=== PATIENT | female | born 1955 | race Caucasian/White ===

== ENCOUNTER 2017-09-17 00:44 | Inpatient (IN) | payer BC, OTHER ==
[~2017-09-17] VITALS: Ht 162.6 cm; Wt 89.1 kg
[2017-09-17] VITALS (13 sets, daily range): BP systolic 135–171; BP diastolic 74–96; PULSE 57–70; TEMP 36.3–37.1; O2SAT 94–99; Ht 162.6 cm; Wt 89.1 kg
[~2017-09-17 00:44] MED LIST: AMLO-110 PO; ASPI81TA28 PO; CALC600T9 PO; HYDR25TA4 PO; LOSA1TAB38 PO; MULT-506 PO; OMEG10002 PO
--- NOTE | 2017-09-17 01:18 | EMERGENCY ROOM VISIT NOTE ---
History Report prepared by Jean-Claude: Babita Moore Under the Supervision of: Dr. Silvia Lugo D.O. First contact with patient: 00:59 Chief Complaint: CHEST PAIN Stated Complaint: CHEST PAIN History of Present Illness The patient is a 62 year old female who presents to the Emergency Room with complaints of persistent chest pain that began about 2 hours ago. The patient states that she felt a centralized chest pressure with some tingling, that lasted about 45 minutes. She notes that she was preparing for bed when her episode started, noting she has never symptoms like these before. She denies any abdominal pain. The patient states that she was cardioverted one week ago in [facility]. She notes she is normally in atrial fibrillation. The patient states that she is a [place] resident. Source of History: patient Onset: about 2 hours ago Position: chest (centralized ) Quality: other (chest pain) Timing: other (persistent) Associated Symptoms: No abdominal pain Note: Associated symptoms include: centralized chest pressure with some tingling Review of Systems See HPI for pertinent positives & negatives. A total of 10 systems reviewed and were otherwise negative. Past Medical & Surgical Medical Problems: (1) Acute coronary syndrome (2) Atrial fibrillation Family History FH: CHF (congestive heart failure) FH: atrial fibrillation FH: heart attack Heart disease Social History Smoking Status: Former Smoker Smokeless Tobacco Use: No Alcohol Use: none Drug Use: none Marital Status: Housing Status: lives with family Current/Historical Medications Scheduled Apixaban (Eliquis), 5 MG PO BID Flecainide Acetate (Flecainide Acetate), 75 MG PO BID Metoprolol Tartrate (Lopressor) (Lopressor), 100 MG PO BID Multivitamin (Multivitamin), 1 TAB PO DAILY [place]-3 Fatty Acids (Fish Oil), 2,000 MG PO DAILY Scheduled PRN Diltiazem Hcl Coated Beads (Diltiazem Cd), 180 MG PO DAILY PRN for AFIB Allergies Coded Allergies: Penicillins (Verified Allergy, Severe, HIVES, 03/11/16) Sulfa Antibiotics (Verified Allergy, Severe, HIVES & "CRAWLING" FEELING ALL OVER, 03/11/16) DOROTHY Inhibitors (Verified Allergy, Intermediate, COUGH, 03/11/16) Physical Exam Vital Signs Date Time Temp Pulse Resp B/P (MAP) Pulse Ox O2 Delivery O2 Flow Rate FiO2 09/17/17 04:40 73 14 97 09/17/17 04:30 169/101 09/17/17 04:25 67 14 98 09/17/17 04:10 71 14 98 09/17/17 04:00 156/94 09/17/17 03:55 64 16 95 09/17/17 03:40 67 17 97 09/17/17 03:30 150/88 09/17/17 03:25 71 13 96 09/17/17 03:20 66 22 97 09/17/17 03:05 63 16 94 09/17/17 03:00 144/82 09/17/17 02:50 64 16 94 09/17/17 02:35 65 17 94 09/17/17 02:30 147/89 09/17/17 02:20 65 17 93 09/17/17 02:05 64 13 95 09/17/17 02:00 151/85 09/17/17 01:59 66 17 93 09/17/17 01:44 68 16 95 09/17/17 01:30 143/86 09/17/17 01:29 71 22 96 09/17/17 01:14 71 24 95 09/17/17 01:00 150/90 09/17/17 01:00 70 09/17/17 00:59 36.7 72 20 150/86 95 Room Air 09/17/17 00:59 71 16 96 Room Air 09/17/17 00:58 150/86 Physical Exam HEENT: Head - normocephalic and atraumatic Pupils are equal, round, and reactive to light. Extraocular eye muscles are intact, and sclera are anicteric. Nose - moist nasal mucosa without discharge. Mouth - moist buccal mucosa. Oropharynx is nonerythematous and there is no tonsillar exudate or edema noted. Neck: Supple; no JVD, nuchal rigidity, cervical lymphadenopathy, or auscultated bruits. Heart: Regular rate and rhythm. There is a normal S1 and S2 with no murmurs, clicks, or gallops appreciated. Lungs: Clear to auscultation bilaterally with no wheezes, rales, or rhonchi. Abdomen: Soft, completely nontender, nondistended, with good bowel sounds. There are no palpable pulsatile masses or hepatosplenomegaly. There is no guarding, rigidity, or rebound noted. Extremities: No evidence of cyanosis, clubbing, or edema. There are easily palpable peripheral pulses. Skin: warm and dry with good turgor and no rashes. Medical Decision & Procedures Laboratory Results 09/17/17 00:45 Red Blood Count 5.04, Mean Corpuscular Volume 88.7, Mean Corpuscular Hemoglobin 30.2, Mean Corpuscular Hemoglobin Concent 34.0, Mean Platelet Volume 10.4, Neutrophils (%) (Auto) 71.9, Lymphocytes (%) (Auto) 18.8, Monocytes (%) (Auto) 8.0, Eosinophils (%) (Auto) 0.8, Basophils (%) (Auto) 0.3, Neutrophils # (Auto) 7.25, Lymphocytes # (Auto) 1.90, Monocytes # (Auto) 0.81, Eosinophils # (Auto) 0.08, Basophils # (Auto) 0.03 09/17/17 00:45 Test 09/17/17 00:45 White Blood Count 10.09 K/uL (4.8-10.8) Red Blood Count 5.04 M/uL (4.2-5.4) Hemoglobin 15.2 g/dL (12.0-16.0) Hematocrit 44.7 % (37-47) Mean Corpuscular Volume 88.7 fL (80-100) Mean Corpuscular Hemoglobin 30.2 pg (25-34) Mean Corpuscular Hemoglobin Concent 34.0 g/dl (32-36) Platelet Count 281 K/uL (130-400) Mean Platelet Volume 10.4 fL (7.4-10.4) Neutrophils (%) (Auto) 71.9 % Lymphocytes (%) (Auto) 18.8 % Monocytes (%) (Auto) 8.0 % Eosinophils (%) (Auto) 0.8 % Basophils (%) (Auto) 0.3 % Neutrophils # (Auto) 7.25 K/uL (1.4-6.5) Lymphocytes # (Auto) 1.90 K/uL (1.2-3.4) Monocytes # (Auto) 0.81 K/uL (0.11-0.59) Eosinophils # (Auto) 0.08 K/uL (0-0.5) Basophils # (Auto) 0.03 K/uL (0-0.2) RDW Standard Deviation 43.4 fL (36.4-46.3) RDW Coefficient of Variation 13.4 % (11.5-14.5) Immature Granulocyte % (Auto) 0.2 % Immature Granulocyte # (Auto) 0.02 K/uL (0.00-0.02) Prothrombin Time 10.6 SECONDS (9.0-12.0) Prothromb Time International Ratio 1.0 (0.9-1.1) Activated Partial Thromboplast Time 27.5 SECONDS (21.0-31.0) Partial Thromboplastin Ratio 1.1 Anion Gap 7.0 mmol/L (3-11) Est Creatinine Clear Calc Drug Dose 59.0 ml/min Estimated GFR () 63.3 Estimated GFR (Non- 54.6 BUN/Creatinine Ratio 29.5 (10-20) Calcium Level 8.9 mg/dl (8.5-10.1) Magnesium Level 2.5 mg/dl (1.8-2.4) Total Bilirubin 0.3 mg/dl (0.2-1) Direct Bilirubin < 0.1 mg/dl (0-0.2) Aspartate Amino Transf (AST/SGOT) 13 U/L (15-37) Alanine Aminotransferase (ALT/SGPT) 27 U/L (12-78) Alkaline Phosphatase 71 U/L (45-117) Total Protein 7.1 gm/dl (6.4-8.2) Albumin 3.4 gm/dl (3.4-5.0) Laboratory results per my review. Medications Administered Medications (Trade) Dose Ordered Sig/Henok Route Start Time Stop Time Status Last Admin Dose Admin Aspirin (Aspirin Chew) 81 mg NOW STAT PO 09/17/17 04:02 09/17/17 04:03 DC 09/17/17 04:08 81 MG Nitroglycerin (Nitroglycerin 2% Oint) 18 inch STK-MED ONCE EXT 09/17/17 04:18 09/17/17 04:19 DC 09/17/17 04:23 1 INCH Potassium Chloride (Klor-Con M10) 40 meq NOW STAT PO 09/17/17 04:24 09/17/17 04:26 DC 09/17/17 04:31 40 MEQ Nitroglycerin (Nitrostat Tab) 0.4 mg UD PRN SL 09/17/17 04:30 10/17/17 04:29 09/17/17 05:11 0.4 MG Morphine Sulfate (MoRPHine SULFATE INJ) 2 mg Q30M PRN IV 09/17/17 04:30 10/01/17 04:29 09/17/17 05:29 2 MG Procedure 0402: Ordered Aspirin 81mg PO. ECG Indication: chest pain Rate (beats per minute): 73 Rhythm: normal sinus Findings: T-wave inversion (Inferior leads in V5 and V6), no ectopy Comparison ECG Date: New compared to 09/09/17 ED Course 0100: Past medical records reviewed. The patient was evaluated in room B2. A complete history and physical exam was performed. A twelve-lead EKG was obtained. An IV lock was initiated and labs were drawn as above. Patient's electrocardiogram was interpreted by me. Patient had a chest x-ray as described above. 0210: The patient remains hemodynamically stable. We were able to obtain an old EKG from [facility]. 0402: I reevaluated the patient and she was resting comfortably symptom free. Ordered Aspirin 81mg PO. 0450: Discussed the patient's case with Dr. Rome Lubin [facility]. The patient will be evaluated for further management. 0452: I reevaluated the patient, she is having worsening chest discomfort and worsening EKG changes. Medical Decision The patient is a 62 year old female who presents to the ED with persistent chest pain. Differential diagnosis includes GERD, acute coronary syndrome, angina, and anxiety. The patient's laboratory results showed: normal coags, BUN of 32, creatinine of 1, glucose of 172, LFT's are normal, troponin 0.040, normal white blood cell count, and stable H&H. This is a 62-year-old female patient with a history of A. fib and recent cardioversion who presents to the emergency department with an episode of chest discomfort. The patient is visiting the area as she is caring for her grandson while the parents are away. She had a sudden onset of chest discomfort associated nausea and diaphoresis with some left arm symptoms for which she called EMS. The patient has evidence of EKG changes in comparison to an EKG from earlier this month. She was symptom-free upon arrival here in the emergency department. Her first troponin was negative. However, the patient's chest discomfort recurred and EKG changes were more exaggerated according to the admitting hospitalist. Medication Reconcilliation Current Medication List: was personally reviewed by me Blood Pressure Screening Patient's blood pressure: Normal blood pressure Consults Time Called: [phone] Consulting Physician: RAZ Berman Returned Call: [phone] Discussed the patient's case with RAZ Berman. The patient will be evaluated for further management. Impression Primary Impression: Left sided chest pain Additional Impression: Acute electrocardiogram changes Scribe Attestation The scribe's documentation has been prepared under my direction and personally reviewed by me in its entirety. I confirm that the note above accurately reflects all work, treatment, procedures, and medical decision making performed by me. Departure Information Dispostion Being Evaluated By Hospitalist Referrals Brigido Gamble M.D. (PCP) Forms Call Back Authorization, HOME CARE DOCUMENTATION FORM, IMPORTANT VISIT INFORMATION Patient Instructions My [facility] Problem Qualifiers
[2017-09-17 01:32] LABS: BASO % 0.3 %; BASO ABS # 0.03 K/uL (0-0.2); EOS % 0.8 %; EOS ABS # 0.08 K/uL (0-0.5); HEMATOCRIT 44.7 % (37-47); HEMOGLOBIN 15.2 g/dL (12.0-16.0); IG# 0.02 K/uL (0.00-0.02); LYMPH % 18.8 %; MEAN CELL VOLUME 88.7 fL (80-100); MEAN CORPUSCULAR HEMOGLOBIN 30.2 pg (25-34); MEAN PLATELET VOLUME 10.4 fL (7.4-10.4); MONO ABS # 0.81 K/uL (0.11-0.59); NEUT % 71.9 %; NEUT ABS # 7.25 K/uL (1.4-6.5); PLATELET COUNT 281 K/uL (130-400); RED CELL DISTRIBUTION WIDTH CV 13.4 % (11.5-14.5); RED CELL DISTRIBUTION WIDTH SD 43.4 fL (36.4-46.3); WHITE BLOOD COUNT 10.09 K/uL (4.8-10.8)
[2017-09-17 01:48] LABS: PTT PATIENT 27.5 SECONDS (21.0-31.0)
[2017-09-17] MEDS ORDERED: APIX1TAB3 PO (01:49)
[2017-09-17] MEDS ORDERED: METO100T14 PO (01:50)
[2017-09-17] MEDS ORDERED: FLEC150T PO (01:51)
[2017-09-17] MEDS ORDERED: DILT180C96 PO (01:53)
[2017-09-17 01:59] LABS: ALBUMIN 3.4 gm/dl (3.4-5.0); ALT/SGPT 27 U/L (12-78); AST/SGOT 13 U/L (15-37); BLOOD UREA NITROGEN 32 mg/dl (7-18); CALCIUM 8.9 mg/dl (8.5-10.1); CARBON DIOXIDE 26 mmol/L (21-32); CREATININE 1.08 mg/dl (0.60-1.20); GLUCOSE 172 mg/dl (70-99); POTASSIUM 3.6 mmol/L (3.5-5.1); SODIUM 139 mmol/L (136-145)
[2017-09-17 02:04] LABS: ALKALINE PHOSPHATASE 71 U/L (45-117); CKMB 1.1 ng/ml (0.5-3.6); TOTAL PROTEIN 7.1 gm/dl (6.4-8.2)
[2017-09-17] MEDS ORDERED: ASPIRIN 81 MG CHEW PO STA ×2 (04:02→05:11)
[2017-09-17] MEDS ORDERED: NITROGLYCERIN 2% OINTMENT 30GM TUBE EXT ONE (04:18)
[2017-09-17] MEDS ORDERED: POTASSIUM CHLORIDE 10 MEQ TABCR PO STA (04:24)
[2017-09-17] MEDS ORDERED: ACETAMINOPHEN 325 MG TAB PO PRN (04:30)
[2017-09-17] MEDS ORDERED: MoRPHine SULFATE 2 MG/ML CARP IV PRN (04:30)
[2017-09-17] MEDS ORDERED: GLUCAGON FOR INJ 1 MG VIAL SQ PRN (04:45)
[2017-09-17] MEDS ORDERED: DEXTROSE 50% 50 ML SYR IV PRN (04:45)
[2017-09-17] MEDS ORDERED: ONDANSETRON 8MG OD TAB PO PRN (04:45)
[2017-09-17] MEDS ORDERED: GLUCOSE 10 TABS/TUBE PO PRN (04:45)
[2017-09-17] MEDS ORDERED: GLUCOSE 40% GEL 15 GM TUBE PO PRN (04:45)
[2017-09-17] MEDS: NITROGLYCERIN 0.4 MG SL PER TAB CHARGE SL PRN ×3 (04:48→05:11)
[2017-09-17] MEDS ORDERED: ATORVASTATIN 40 MG TAB PO STA (04:56)
[2017-09-17] MEDS: NSS + 20MEQ KCL 1000ML 1,000 ML IV SCH ×2 (05:09→20:28)
[2017-09-17 05:33] LABS: CKMB 2.1 ng/ml (0.5-3.6)
--- NOTE | 2017-09-17 05:51 | History and Physical ---
History & Physical Date & Time of Service: Sep 17, 2017 at 05:29 Chief Complaint: Chest Pain Primary Care Physician: No Doctor, Assigned History of Present Illness Source: patient, hospital records The patient is a 62-year-old female who presents to the emergency department with a centralized chest pressure that began about 2 hours prior to arrival. The initial set of symptoms lasted about 45 minutes, and at the time of my evaluation of her in the ED, she rated her pressure as a 2/10. She has not had this type of pain in the past, and reports that this began when she was getting ready for bed. She does report an occasional cough, that is residual of a URI that she had recently. Family History FH: CHF (congestive heart failure) FH: atrial fibrillation FH: heart attack Heart disease Social History Smoking Status: Former Smoker Smokeless Tobacco Use: No Drug Use: none Marital Status: Housing status: lives with family Immunizations History of Influenza Vaccine: Unknown History of Tetanus Vaccine?: Unknown History of Pneumococcal: Unknown History of Hepatitis B Vaccine: Unknown Multi-Drug Resistant Organisms History of MDRO: No Allergies Coded Allergies: Penicillins (Verified Allergy, Severe, HIVES, 03/11/16) Sulfa Antibiotics (Verified Allergy, Severe, HIVES & "CRAWLING" FEELING ALL OVER, 03/11/16) DOROTHY Inhibitors (Verified Allergy, Intermediate, COUGH, 03/11/16) Home Medications Scheduled Apixaban (Eliquis), 5 MG PO BID Flecainide Acetate (Flecainide Acetate), 75 MG PO BID Metoprolol Tartrate (Lopressor) (Lopressor), 100 MG PO BID Multivitamin (Multivitamin), 1 TAB PO DAILY [place]-3 Fatty Acids (Fish Oil), 2,000 MG PO DAILY Scheduled PRN Diltiazem Hcl Coated Beads (Diltiazem Cd), 180 MG PO DAILY PRN for AFIB Review of Systems The patient denies palpitations, shortness of breath, dyspnea on exertion, lower extremity swelling, sore throat, fevers, chills, sweats, weight change, fatigue, nausea, vomiting, diarrhea , constipation, abdominal pain, pelvic pain, blood in urine or stool, dysuria, urinary frequency or urgency, lightheadedness , dizziness, headache, memory loss, loss of consciousness, rash, abnormal bruising or bleeding, imbalance, focal or generalized weakness, numbness or tingling in arms or legs, generalized arthralgias or myalgias, back or neck pain, or night sweats. The review of systems is otherwise negative other than for that already noted above, and at least 10 systems have been reviewed. Physical Exam Vital Signs Date Time Temp Pulse Resp B/P (MAP) Pulse Ox O2 Delivery O2 Flow Rate FiO2 09/17/17 03:20 66 22 97 09/17/17 03:05 63 16 94 09/17/17 03:00 144/82 09/17/17 02:50 64 16 94 09/17/17 02:35 65 17 94 09/17/17 02:30 147/89 09/17/17 02:20 65 17 93 09/17/17 02:05 64 13 95 09/17/17 02:00 151/85 09/17/17 01:59 66 17 93 09/17/17 01:44 68 16 95 09/17/17 01:30 143/86 09/17/17 01:29 71 22 96 09/17/17 01:14 71 24 95 09/17/17 01:00 150/90 09/17/17 01:00 70 09/17/17 00:59 36.7 72 20 150/86 95 Room Air 09/17/17 00:59 71 16 96 Room Air 09/17/17 00:58 150/86 The patient is awake, alert and oriented 3, well developed and well nourished, normocephalic and atraumatic, lying in bed and in no acute distress. HEENT--PERRL, EOMI, mucous membranes and oropharynx dry. Neck--supple. No JVD. No bruits. Thyroid normal, trachea midline, no adenopathy. Heart--normal S1 and S2. No murmurs, rubs or gallops. Lungs--clear bilaterally, no respiratory distress, no accessory muscle use. Abdomen--normal bowel sounds and soft. Nontender. Nondistended, no hernias or masses, no organomegaly. Extremities--no cyanosis or clubbing. No edema. There are good distal pulses b/ l. Dermatologic--normal skin turgor, normal color, no abnormal lymph nodes, no rash. Neurologic--cranial nerves II through XII grossly intact. Rheumatologic--normal range of motion. Psychiatric--normal affect. Diagnostics Laboratory Results Results Past 24 Hours Test 09/17/17 00:45 09/17/17 04:34 09/17/17 04:54 Range/Units White Blood Count 10.09 4.8-10.8 K/uL Red Blood Count 5.04 4.2-5.4 M/uL Hemoglobin 15.2 12.0-16.0 g/dL Hematocrit 44.7 37-47 % Mean Corpuscular Volume 88.7 80-100 fL Mean Corpuscular Hemoglobin 30.2 25-34 pg Mean Corpuscular Hemoglobin Concent 34.0 32-36 g/dl Platelet Count 281 130-400 K/uL Mean Platelet Volume 10.4 7.4-10.4 fL Neutrophils (%) (Auto) 71.9 % Lymphocytes (%) (Auto) 18.8 % Monocytes (%) (Auto) 8.0 % Eosinophils (%) (Auto) 0.8 % Basophils (%) (Auto) 0.3 % Neutrophils # (Auto) 7.25 1.4-6.5 K/uL Lymphocytes # (Auto) 1.90 1.2-3.4 K/uL Monocytes # (Auto) 0.81 0.11-0.59 K/uL Eosinophils # (Auto) 0.08 0-0.5 K/uL Basophils # (Auto) 0.03 0-0.2 K/uL RDW Standard Deviation 43.4 36.4-46.3 fL RDW Coefficient of Variation 13.4 11.5-14.5 % Immature Granulocyte % (Auto) 0.2 % Immature Granulocyte # (Auto) 0.02 0.00-0.02 K/uL Prothrombin Time 10.6 9.0-12.0 SECONDS Prothromb Time International Ratio 1.0 0.9-1.1 Activated Partial Thromboplast Time 27.5 21.0-31.0 SECONDS Partial Thromboplastin Ratio 1.1 Sodium Level 139 136-145 mmol/L Potassium Level 3.6 3.5-5.1 mmol/L Chloride Level 106 98-107 mmol/L Carbon Dioxide Level 26 21-32 mmol/L Anion Gap 7.0 3-11 mmol/L Blood Urea Nitrogen 32 7-18 mg/dl Creatinine 1.08 0.60-1.20 mg/dl Est Creatinine Clear Calc Drug Dose 59.0 ml/min Estimated GFR () 63.3 Estimated GFR (Non- 54.6 BUN/Creatinine Ratio 29.5 10-20 Random Glucose 172 70-99 mg/dl Calcium Level 8.9 8.5-10.1 mg/dl Total Bilirubin 0.3 0.2-1 mg/dl Direct Bilirubin < 0.1 0-0.2 mg/dl Aspartate Amino Transf (AST/SGOT) 13 15-37 U/L Alanine Aminotransferase (ALT/SGPT) 27 12-78 U/L Alkaline Phosphatase 71 45-117 U/L Total Creatine Kinase 55 26-192 U/L Creatine Kinase MB 1.1 0.5-3.6 ng/ml Creatine Kinase MB Ratio 2.0 0-3.0 Troponin I 0.040 0-0.045 ng/ml Total Protein 7.1 6.4-8.2 gm/dl Albumin 3.4 3.4-5.0 gm/dl Impression Assessment and Plan Acute coronary syndrome/dynamic EKG changes inferior laterally/hypertension/ paroxysmal atrial fibrillation-- The patient will be admitted to telemetry for serial cardiac enzymes, serial EKG's, cardiac rhythm monitoring and a 2-D echocardiogram with Dopplers. Initial EKG showed normal sinus rhythm at 69 bpm with T-wave inversions in leads III, aVF, V5 and V6 with mild ST depressions. Follow-up EKG with return of chest pressure symptoms showed normal sinus rhythm at 67 bpm with T-wave inversions in leads II, III, aVF, V5 and V6 with mild ST depressions Continue metoprolol tartrate 100 mg p.o. twice daily, and flecainide 75 mg p.o. twice daily. Give aspirin chewable 324mg total and continue 81 mg every morning Give Klor-Con 40 mEq p.o. now for potassium 3.6. Hold apixaban 5 mg p.o. twice daily. We will start heparin standard concentration per protocol with bolus at 9:30 AM this morning, 12 hours from her last dose of apixaban. Place on Nitropaste 1 inch to the anterior chest wall every 6 hours Nitroglycerin sublingual 3 every 5 minutes given in the ED for pain relief Morphine sulfate 2 mg IV every 30 minutes as needed Check a fasting lipid panel and hemoglobin A1c Start Lipitor 80 mg daily with first dose now Normal saline plus KCl 20 mEq at 75 ML's per hour. Consult cardiology. Level of Care Telemetry Advanced Directives Existing Advance Directive: No Existing Living Will: No Existing Power of Payable Representative: No Resuscitation Status FULL RESUSCITATION VTE Prophylaxis VTE Risk Assessment Done? Y/N: Yes Risk Level: Moderate Given or contraindicated: Other Anticoagulation Social Service Consult None Apply
--- NOTE | 2017-09-17 06:49 | DIAGNOSTIC IMAGING REPORT ---
CHEST ONE VIEW PORTABLE HISTORY: 62 years-old Female eval for CP acute atypical chest pain COMPARISON: None available TECHNIQUE: Portable AP view of the chest FINDINGS: Cardiac silhouette is mildly enlarged. Atherosclerosis of the aorta. There is no pneumothorax or pleural effusion. Diffuse reticular interstitial opacities are noted in a multilobar distribution bilaterally. There is no pneumothorax, pleural effusion or focal alveolar opacity identified. Bones of the chest appear grossly intact. IMPRESSION: Diffuse reticular interstitial opacities in a multilobar distribution bilaterally is indeterminate without comparison. Differential considerations would include chronic scarring, pulmonary edema or atypical pneumonia. Correlate with any prior imaging. The above report was generated using voice recognition software. It may contain grammatical, syntax or spelling errors. Electronically signed by: Misael Jones M.D. 09/17/2017 6:48 AM Dictated Date/Time: 09/17/2017 6:46 AM
[2017-09-17] MEDS: METOPROLOL TARTRATE 100 MG TAB PO SCH ×3 (08:23→20:29)
[2017-09-17] MEDS: MULTIVITAMIN TAB PO SCH (08:24)
[2017-09-17] MEDS ORDERED: ASPIRIN 81 MG ECTAB PO SCH (09:00)
[2017-09-17] MEDS ORDERED: HEPARIN 25,000 UNIT/500ML D5W 500 ML IV PRN (09:30)
[2017-09-17] MEDS ORDERED: HEPARIN IV BOLUS 6,000 UNIT in SYRINGE 0 ML IV ONE (09:30)
--- NOTE | 2017-09-17 10:27 | Cardiology Consultation ---
Cardiology Consultation Date of Consultation: Sep 17, 2017. Requesting Physician: Dr. Lubin Reason for Consultation: Chest pain, elevated troponin Pt evaluation today including: conversation w/ patient, physical exam, chart review, lab review, review of studies, review of inpatient medication list, conversation w/ attending History of Present Illness Mrs. Silvestre is a 62-year-old female with a past medical history significant for paroxysmal atrial fibrillation and hypertension who presented to the ED early this morning with complaints of chest pressure, which began about an hour prior to arrival. The patient resides in [place], but she is currently in town babysitting her grandchild. She reports that last evening, she was getting ready for bed when she developed a pressure in the center and left side of her chest which radiated into her back. She had associated tingling in her left arm , and she also felt sweaty/clammy. She waited about 45 minutes and decided to call her [id number] parents to come over and watch her grandson. She then called 911. She reports that the discomfort was easing off by the time EMS arrived, but the discomfort appeared to worsen again when she arrived in the ED. She was given aspirin, sublingual nitro, and morphine in the ED, and her discomfort eventually subsided. She is currently chest pain free. She reports that she was recently diagnosed with atrial fibrillation in July 2017. The arrhythmia was discovered at the time that she was to have a colonoscopy. She was initiated on Flecainide 75 mg BID as well as Eliquis 5 mg BID. She has also been taking metoprolol tartrate 100 mg BID. She underwent elective electrical cardioversion 09/10/2017 with return to sinus rhythm. She reports that she was also became sick with what she thinks was the flu on . She continues to cough with some brown mucous production, but she does feel as though her cough is improving. She denies shortness of breath or limiting dyspnea. She denies orthopnea, PND, or edema. She denies syncope or presyncope. She denies abnormal bleeding such as melena, hematochezia, or hematuria. She denies cerebrovascular symptoms. Review of Systems: As noted in HPI. All other 10 point ROS reviewed and otherwise negative. Past Medical/Surgical History 1. Paroxysmal atrial fibrillation- diagnosed 07/2017, status post cardioversion 09/09/2017 2. Hypertension 3. Osteoarthritis 4. Vertigo 5. Left knee meniscus repair 1999 Family History FH: CHF (congestive heart failure) FH: atrial fibrillation FH: heart attack Heart disease Father of an CT at the age of 70. Mother at the age of 87; she had CHF , "valve issues," and atrial fibrillation. Social History Smoking Status: Former Smoker History of Alcohol Use: No She is . She is from the [place] area, but she and her have been living in [place] for the last 3 years. She has 2 children who live in [place], and 1 child who lives in [facility]. She has 6 grandchildren. She has a remote history of smoking. She denies alcohol or illicit drug use. Allergies Coded Allergies: Penicillins (Verified Allergy, Severe, HIVES, 03/11/16) Sulfa Antibiotics (Verified Allergy, Severe, HIVES & "CRAWLING" FEELING ALL OVER, 03/11/16) DOROTHY Inhibitors (Verified Allergy, Intermediate, COUGH, 03/11/16) Medications Current Inpatient Medications Medications (Trade) Dose Ordered Sig/Henok Route Start Time Stop Time Status Last Admin Dose Admin Nitroglycerin (Nitroglycerin 2% Oint) 1 inch Q6 EXT 09/17/17 11:00 10/17/17 10:59 Potassium Chloride/Sodium Chloride 1,000 ml @ 75 mls/hr [id number] IV 09/17/17 05:00 10/17/17 04:59 09/17/17 05:09 75 MLS/HR Acetaminophen (Tylenol Tab) 650 mg Q4H PRN PO 09/17/17 04:30 10/17/17 04:29 Nitroglycerin (Nitrostat Tab) 0.4 mg UD PRN SL 09/17/17 04:30 10/17/17 04:29 09/17/17 05:11 0.4 MG Morphine Sulfate (MoRPHine SULFATE INJ) 2 mg Q30M PRN IV 09/17/17 04:30 10/01/17 04:29 09/17/17 05:29 2 MG Ondansetron HCl (Zofran Odt) 8 mg Q6H PRN PO 09/17/17 04:45 10/17/17 04:44 Insulin Aspart (novoLOG ASPART) SLIDING SCALE If C... ACHS SC 09/17/17 07:00 10/17/17 06:59 Glucose (Glucose 40% Gel) 15-30 GRAMS 15 GRAMS... UD PRN PO 09/17/17 04:45 10/17/17 04:44 Glucose (Glucose Chew Tab) 4-8 Tablets 4 Tabl... UD PRN PO 09/17/17 04:45 10/17/17 04:44 Dextrose (Dextrose 50% 50ML Syringe) 25-50ML OF 50% DW IV FOR... UD PRN IV 09/17/17 04:45 10/17/17 04:44 Glucagon (Glucagon Inj) 1 mg UD PRN SQ 09/17/17 04:45 10/17/17 04:44 Metoprolol Tartrate (Lopressor Tab) 100 mg BID PO 09/17/17 09:00 10/17/17 08:59 Multivitamins (Multivitamin Tab) 1 tab DAILY PO 09/17/17 09:00 10/17/17 08:59 09/17/17 08:24 1 TAB Flecainide Acetate (Flecainide Acetate) 75 mg BID PO 09/17/17 09:30 10/17/17 09:29 Atorvastatin Calcium (Lipitor Tab) 80 mg QAM PO 09/18/17 09:00 10/18/17 08:59 Aspirin (Ecotrin Tab) 81 mg QAM PO 09/18/17 09:00 10/18/17 08:59 Heparin Sodium (Porcine) 6000 unit/Syringe 6 ml @ 10 mls/min TODAY@0930 ONCE IV 09/17/17 09:30 09/17/17 09:31 09/17/17 08:25 10 MLS/MIN Heparin Sodium/ Dextrose 500 ml @ 25 mls/hr Q20H PRN IV 09/17/17 09:30 10/17/17 09:29 09/17/17 08:26 25 MLS/HR Physical Exam Vital Signs Past 12 Hours Date Time Temp Pulse Resp B/P (MAP) Pulse Ox O2 Delivery O2 Flow Rate FiO2 09/17/17 07:45 36.4 59 18 135/74 (94) 96 Room Air 09/17/17 07:45 Room Air 09/17/17 06:59 36.9 62 18 150/84 94 Room Air 09/17/17 05:50 137/94 09/17/17 05:48 147/94 09/17/17 05:40 61 16 98 Room Air 09/17/17 05:20 147/87 09/17/17 05:10 68 13 132/81 96 09/17/17 05:00 155/96 09/17/17 04:59 154/90 09/17/17 04:55 68 12 98 09/17/17 04:40 73 14 97 09/17/17 04:30 169/101 09/17/17 04:25 67 14 98 09/17/17 04:10 71 14 98 09/17/17 04:00 156/94 09/17/17 03:55 64 16 95 09/17/17 03:40 67 17 97 09/17/17 03:30 150/88 09/17/17 03:25 71 13 96 09/17/17 03:20 66 22 97 09/17/17 03:05 63 16 94 09/17/17 03:00 144/82 09/17/17 02:50 64 16 94 09/17/17 02:35 65 17 94 09/17/17 02:30 147/89 09/17/17 02:20 65 17 93 09/17/17 02:05 64 13 95 09/17/17 02:00 151/85 09/17/17 01:59 66 17 93 09/17/17 01:44 68 16 95 09/17/17 01:30 143/86 09/17/17 01:29 71 22 96 09/17/17 01:14 71 24 95 09/17/17 01:00 150/90 09/17/17 01:00 70 09/17/17 00:59 36.7 72 20 150/86 95 Room Air 09/17/17 00:59 71 16 96 Room Air 09/17/17 00:58 150/86 Constitutional: Alert, oriented, in no acute distress HEENT: Head is atraumatic and normocephalic. EOMs intact. Sclera anicteric. Face is symmetric. No perioral cyanosis. Mucous membranes moist. Neck: Supple, no JVD, no carotid bruits Pulmonary: Normal respiratory effort, clear to auscultation bilaterally Cardiac: Regular rate and rhythm, normal S1 and S2, no gallops, no rubs, no murmurs Extremities: No clubbing, cyanosis, or edema. Pulses 2+ and symmetric Abdomen: Normal bowel sounds, soft, non-tender, no abdominal mass palpated Skin: Normal skin color, turgor, and pigmentation, no rash, no skin lesions Neurological: Oriented to person, place, and time Data Laboratory Results: Last 24 Hours Test 09/17/17 00:45 09/17/17 04:54 09/17/17 07:50 White Blood Count 10.09 K/uL Red Blood Count 5.04 M/uL Hemoglobin 15.2 g/dL Hematocrit 44.7 % Mean Corpuscular Volume 88.7 fL Mean Corpuscular Hemoglobin 30.2 pg Mean Corpuscular Hemoglobin Concent 34.0 g/dl Platelet Count 281 K/uL Mean Platelet Volume 10.4 fL Neutrophils (%) (Auto) 71.9 % Lymphocytes (%) (Auto) 18.8 % Monocytes (%) (Auto) 8.0 % Eosinophils (%) (Auto) 0.8 % Basophils (%) (Auto) 0.3 % Neutrophils # (Auto) 7.25 K/uL Lymphocytes # (Auto) 1.90 K/uL Monocytes # (Auto) 0.81 K/uL Eosinophils # (Auto) 0.08 K/uL Basophils # (Auto) 0.03 K/uL RDW Standard Deviation 43.4 fL RDW Coefficient of Variation 13.4 % Immature Granulocyte % (Auto) 0.2 % Immature Granulocyte # (Auto) 0.02 K/uL Prothrombin Time 10.6 SECONDS Prothromb Time International Ratio 1.0 Activated Partial Thromboplast Time 27.5 SECONDS Partial Thromboplastin Ratio 1.1 Sodium Level 139 mmol/L Potassium Level 3.6 mmol/L Chloride Level 106 mmol/L Carbon Dioxide Level 26 mmol/L Anion Gap 7.0 mmol/L Blood Urea Nitrogen 32 mg/dl Creatinine 1.08 mg/dl Est Creatinine Clear Calc Drug Dose 59.0 ml/min Estimated GFR () 63.3 Estimated GFR (Non- 54.6 BUN/Creatinine Ratio 29.5 Random Glucose 172 mg/dl Calcium Level 8.9 mg/dl Magnesium Level 2.5 mg/dl Total Bilirubin 0.3 mg/dl Direct Bilirubin < 0.1 mg/dl Aspartate Amino Transf (AST/SGOT) 13 U/L Alanine Aminotransferase (ALT/SGPT) 27 U/L Alkaline Phosphatase 71 U/L Total Creatine Kinase 55 U/L 47 U/L Creatine Kinase MB 1.1 ng/ml 2.1 ng/ml Creatine Kinase MB Ratio 2.0 4.5 Troponin I 0.040 ng/ml 0.311 ng/ml Total Protein 7.1 gm/dl Albumin 3.4 gm/dl Estimated Average Glucose 126 mg/dl Hemoglobin A1c 6.0 % Triglycerides Level 93 mg/dl Cholesterol Level 153 mg/dl HDL Cholesterol 47 mg/dl LDL Cholesterol, Calculated 87 mg/dl VLDL Cholesterol, Calculated 19 mg/dl Cholesterol/HDL Ratio 3.3 Bedside Glucose 98 mg/dl CXR: Diffuse reticular interstitial opacities in a multilobar distribution bilaterally is indeterminate without comparison. Differential considerations would include chronic scarring, pulmonary edema or atypical pneumonia. Correlate with any prior imaging. EKGs have shown sinus rhythm. There are T wave abnormalities in leads V5-V6 and II, III, and aVF Telemetry reviewed: Sinus rhythm in the 60s. Assessment & Plan Patient is a 62-year-old female with a history of hypertension and recently diagnosed paroxysmal atrial fibrillation who presented to the ED early this morning with complaints of chest pressure radiating into her back, left arm tingling, and diaphoresis which began about an hour prior to arrival. Her initial troponin was undetectable, but subsequent troponin was mildly elevated at 0.311. Her EKGs have shown T wave abnormality in her inferior and lateral leads. Given the concerning nature of her symptoms, elevated troponin, and EKG abnormality, recommend further evaluation with cardiac catheterization. She will tentatively be scheduled for the procedure later today. In the interim, recommend continuing Heparin drip. She is also to have an echocardiogram this morning. Further recommendations to follow after the catheterization. The patient was discussed with Dr. Sanchez, and the plan was made in collaboration with him.
[2017-09-17] MEDS: FLECAINIDE 150 MG PO SCH ×2 (10:43→21:00)
[2017-09-17] MEDS ORDERED: NURSING VERBAL MED ORDER ONE (10:45)
[2017-09-17] MEDS ORDERED: NITROGLYCERIN 2% OINTMENT 30GM TUBE EXT SCH (11:00)
[2017-09-17] MEDS: INSULIN ASPART 100 UNITS/ML 3 ML PEN SC SCH ×3 (12:04→21:00)
--- NOTE | 2017-09-17 12:12 | ECHOCARDIOGRAM REPORT ---
*NOTICE TO RECEIVING CONSTITUTION PARTY AGENCY This information is strictly Confidential and protected under [place] law. [place] law prohibits you from making any further disclosure of this information unless further disclosure is expressly permitted by the written consent of the person to whom it pertains or is authorized by law. A general authorization for the release of medical or other information is not sufficient for this purpose. Hospital accepts no responsibility if the information is made available to any other person, INCLUDING THE PATIENT. Interpretation Summary * Name: KARLA DOS SANTOS Study Date: 09/17/2017 09:29 AM BP: 137/94 mmHg * Patient Location: [facility] HR: 61 * : 1955 (M/d/yyyy) Gender: Female Height: 64 in * Age: 62 yrs Ethnicity: CA Weight: 205 lb * Ordering Physician: Rome Lubin * Referring Physician: Self, Referred * Performed By: Sue Morales RDCS * * Reason For Study: ACS * BSA: 2.0 m2 * -- Conclusions -- * 1. Normal LV size, normal LV wall thickness. * 2. Normal LV function. LVEF 55-60%. Mild hypokinesis inferior wall. * 3. Normal RV size and function. * 4. Mild mitral regurgitation. * 5. No prior studies for comparison. Procedure Details * A complete two-dimensional transthoracic echocardiogram was performed (2D, M-mode, Doppler and color flow Doppler). Left Ventricle * The left ventricle is grossly normal size. * There is normal left ventricular wall thickness. * Ejection Fraction = 55-60%. * There is mild inferior wall hypokinesis. Right Ventricle * The right ventricle is grossly normal size. * There is normal right ventricular wall thickness. * The right ventricular systolic function is normal as assessed by tricuspid annular plane systolic excursion (TAPSE) (normal >1.5 cm). Atria * The left atrial size is normal. * Right atrial size is normal. * No ASD detected; PFO is not assessed. Mitral Valve * The mitral valve is grossly normal. * There is mild mitral annular calcification. * There is no mitral valve stenosis. * There is mild mitral regurgitation. Aortic Valve * The aortic valve opens well. * The aortic valve is trileaflet. * No hemodynamically significant valvular aortic stenosis. * There is no significant aortic regurgitation. Pulmonic Valve * The pulmonary valve is inadequately visualized, but the Doppler data is adequate for interpretation. * There is no pulmonic valvular stenosis. * Trace pulmonic valvular regurgitation. Great Vessels * The aortic root and proximal ascending aorta are normal sized. Pericardium/Pleural * There is no pericardial effusion. Great Vessels * IVC < 2.1,< 50% change with respiration. Est RA 8 mmHg. MMode 2D Measurements and Calculations IVSd 0.88 cm IVSs 0.98 cm LVIDd 5.1 cm LVIDs 3.4 cm LVPWd 0.74 cm LVPWs 1.3 cm IVS/LVPW 1.2 FS 33.2 % EDV(Teich) 121.9 ml ESV(Teich) 46.9 ml EF(Teich) 61.5 % EDV(cubed) 129.9 ml ESV(cubed) 38.8 ml EF(cubed) 70.2 % % IVS thick 10.9 % % LVPW thick 81.4 % LV mass(C)d 141.2 grams LV mass(C)dI 71.4 grams/m\S\2 LV mass(C)s 122.8 grams LV mass(C)sI 62.1 grams/m\S\2 SV(Teich) 75.0 ml SI(Teich) 37.9 ml/m\S\2 SV(cubed) 91.2 ml SI(cubed) 46.1 ml/m\S\2 Ao root diam 2.5 cm Ao root area 5.0 cm\S\2 ACS 1.8 cm LA dimension 4.1 cm LA/Ao 1.6 LVAd ap4 28.9 cm\S\2 LVLd ap4 8.2 cm EDV(MOD-sp4) 87.8 ml EDV(sp4-el) 86.1 ml LVAs ap4 16.0 cm\S\2 LVLs ap4 6.5 cm ESV(MOD-sp4) 35.3 ml ESV(sp4-el) 33.4 ml EF(MOD-sp4) 59.8 % EF(sp4-el) 61.2 % LVAd ap2 24.7 cm\S\2 LVLd ap2 7.9 cm EDV(MOD-sp2) 66.0 ml EDV(sp2-el) 65.5 ml LVAs ap2 15.3 cm\S\2 LVLs ap2 6.9 cm ESV(MOD-sp2) 29.8 ml ESV(sp2-el) 28.7 ml EF(MOD-sp2) 54.8 % EF(sp2-el) 56.2 % LVLd %diff -3.89 % EDV(MOD-bp) 77.9 ml LVLs %diff 5.8 % ESV(MOD-bp) 33.5 ml EF(MOD-bp) 57.0 % SV(MOD-sp4) 52.5 ml SI(MOD-sp4) 26.6 ml/m\S\2 SV(MOD-sp2) 36.2 ml SI(MOD-sp2) 18.3 ml/m\S\2 SV(MOD-bp) 44.4 ml SI(MOD-bp) 22.5 ml/m\S\2 SV(sp4-el) 52.6 ml SI(sp4-el) 26.6 ml/m\S\2 SV(sp2-el) 36.8 ml SI(sp2-el) 18.6 ml/m\S\2 Doppler Measurements and Calculations MV E max mika 125.6 cm/sec MV A max mika 69.0 cm/sec MV E/A 1.8 MV dec time 0.35 sec Ao V2 max 144.5 cm/sec Ao max PG 8.4 mmHg Ao max PG (full) 4.7 mmHg LV V1 max PG 3.6 mmHg LV V1 max 95.4 cm/sec PA V2 max 88.9 cm/sec PA max PG 3.2 mmHg PI max mika 150.8 cm/sec PI max PG 9.8 mmHg PI dec slope 115.6 cm/sec\S\2 PI P1/2t 382.1 msec
[2017-09-17] MEDS ORDERED: HEPARIN SOD (PORCINE) 1000 UNIT/ML 10 ML VIAL ONE (15:31)
[2017-09-17] MEDS ORDERED: MIDAZOLAM HCL 1 MG/ML 2ML VIAL ONE (15:31)
[2017-09-17] MEDS ORDERED: NiCARDipine HCL INJ 2.5 MG/ML 10 ML AMP ONE (15:31)
[2017-09-17] MEDS ORDERED: NITROGLYCERIN/D5W 100MCG/ML 20ML SYR ONE (15:32)
[2017-09-17] MEDS ORDERED: FENTANYL CITRATE INJ 50 MCG/1 ML 2 ML VIAL ONE (15:33)
--- NOTE | 2017-09-17 15:54 | Progress Note ---
Progress Note Date of Service Sep 17, 2017. Progress Note follow up note, patient admitted this AM for chest pain patient feeling well, no chest pain, she does admit to a headache attributed to nitro reviewed labs, troponin up slightly to 0.3 and then down to 0.187 cardiology consult, planning on heart cath today if it can be performed - NSTEMI: heparin drip, aspirin, cardiology planning on heart cath headache due to nitro so ordered it to be stopped - Atrial fibrillation, chronic: HR stable
--- NOTE | 2017-09-17 17:01 | Pre Sedation Assessment ---
Pre Sedation Assessment General Date of Sedation: Sep 17, 2017. Vital Signs Past 12 Hours Date Time Temp Pulse Resp B/P (MAP) Pulse Ox O2 Delivery O2 Flow Rate FiO2 09/17/17 16:49 73 18 141/88 (105) 99 Mask 3 09/17/17 15:09 36.9 65 18 154/96 (115) 97 Room Air 09/17/17 12:08 36.5 57 18 171/93 (119) 97 Room Air 09/17/17 11:45 Room Air 09/17/17 10:43 68 09/17/17 07:45 36.4 59 18 135/74 (94) 96 Room Air 09/17/17 07:45 Room Air 09/17/17 06:59 36.9 62 18 150/84 94 Room Air 09/17/17 05:50 137/94 09/17/17 05:48 147/94 09/17/17 05:40 61 16 98 Room Air 09/17/17 05:20 147/87 09/17/17 05:10 68 13 132/81 96 Review Cardiovascular: regular rate, rhythm, no edema Lungs: chest non-tender, normal breath sounds Pre-Sedation Airway Assessment Smoking Status: Former Smoker Hx of Sleep Apnea: No Hx of difficult intubation: No Short Thick Neck: No Thyro-mental Distance: > 3 Finger Breadths Oral Cavity: WNL Mallampati Classification: Class II ASA Classification: Class II NPO Status Date of Last Intake of Fluids: Sep 17, 2017 Time of Last Intake of Fluids: 0900 Date of Last Intake of Solids: Sep 16, 2017 Time of Last Intake of Solids: 2100 Procedure Planning Contraindications for Sedation: None Current Medications Reviewed: Yes Notes The planned sedation has been discussed with the patient. Informed Consent was obtained. I have identified the patient, determined the appropriateness of sedation and have assessed the patient immediately prior to the procedure. All medicine(s) and interventions are by my order.
--- NOTE | 2017-09-17 17:19 | Cardiac Catheterization ---
Procedure Note Procedure Date Sep 17, 2017. Pre-Procedure Diagnosis Non STEMI AUC Score 7 Post-Procedure Diagnosis Moderate CAD, Normal LV Systolic Function, Normal Intracardiac Pressures Procedure(s) Performed Coronary Angiography, Left Heart Cath, LV Angiography Property Maintenance Technician Anthony Keyboarding Clerk(s) Gal Estimated Blood Loss 10 Medication(s) Fentanyl, Nicardipine, Nitroglycerin, Versed, Lidocaine 1% Summary of Findings Indication: NSTEMI Access: 6Fr right radial artery Catheters: [place]; Pigtail Findings: LM - Short LM almost separate ostium LAD - Gives off large first diagonal; remainder of LAD is small to moderate caliber with diffuse 40-50% mid segment disease. 1st diagonal angiographically normal Circumflex - Angiographically normal large, dominant vessel which gives off 2 OMs, a PLB and a tortuous L-PDA. All branches without significant disease. RCA - Small, non-dominant, angiographically normal LVEDP - 8 LVEF 50-55% Arterial Closure: TR Band Summary: 1. Mild to moderate non-obstructive coronary artery disease - 40-50% diffuse mid LAD disease 2. Normal intracardiac filling pressure Recommendations: Medical management of LAD disease Plan for dual therapy with aspirin and apixaban -- resume in AM. Continue current metoprolol and atorvastatin Start DOROTHY inhibitor, titrate up for improved BP control. Home off diltiazem. Hemodynamics Rest Ao: 168/83/120 Final Ao: 167/85/121 LV: 165/8 Recommendations Medical therapy and/or Counseling Specimens None Radiation Exposure (mGy) 1213 Contrast (mls) 50 Fluids (cc crystalloids) 100 NSS Drains None Anesthesia Moderate Procedural Complication(s) None Disposition PCU ACC Data Cardiac Status Clinical evaluation leading to the procedure CAD Presntation: Non STEMI Anginal Classification: CCS IV Heart Failure: NYHA Class: CCS I Cardiogenic Shock w/in 24Hrs: No Cardiac Arrest w/in 24Hrs: No Imaging studies past 6 months: Yes Closure Device Percutaneous Entry Location: Radial Closure Device: Radial Band Recommendations: Medical therapy and/or Counseling Intraprocedure Events Significant Dissection: No Perforation: No
[2017-09-17 21:44] LABS: CKMB 1.7 ng/ml (0.5-3.6)
[2017-09-18] VITALS: O2SAT 96
[2017-09-18 04:08] VITALS: BP 161/98; PULSE 71; TEMP 37.5; O2SAT 98
[2017-09-18 04:13] VITALS: O2SAT 96
[2017-09-18] MEDS: INSULIN ASPART 100 UNITS/ML 3 ML PEN SC SCH ×2 (07:00→11:00)
[2017-09-18 07:19] LABS: BASO % 0.4 %; BASO ABS # 0.03 K/uL (0-0.2); EOS ABS # 0.08 K/uL (0-0.5); HEMOGLOBIN 14.5 g/dL (12.0-16.0); IG# 0.02 K/uL (0.00-0.02); LYMPH % 30.4 %; LYMPH ABS # 2.32 K/uL (1.2-3.4); MEAN CELL VOLUME 87.7 fL (80-100); MEAN CORPUSCULAR HEMOGLOBIN 30.3 pg (25-34); MEAN CORPUSCULAR HGB CONC 34.5 g/dl (32-36); MEAN PLATELET VOLUME 9.6 fL (7.4-10.4); MONO % 11.9 %; MONO ABS # 0.91 K/uL (0.11-0.59); NEUT ABS # 4.26 K/uL (1.4-6.5); PLATELET COUNT 238 K/uL (130-400); RED CELL DISTRIBUTION WIDTH CV 13.2 % (11.5-14.5); RED CELL DISTRIBUTION WIDTH SD 42.5 fL (36.4-46.3); WHITE BLOOD COUNT 7.62 K/uL (4.8-10.8)
[2017-09-18 07:30] LABS: PTT PATIENT 24.8 SECONDS (21.0-31.0)
[2017-09-18 07:54] VITALS: BP 144/91; PULSE 64; TEMP 37; O2SAT 96
[2017-09-18 08:00] VITALS: O2SAT 97
[2017-09-18 08:01] LABS: CALCIUM 8.8 mg/dl (8.5-10.1); CREATININE 0.76 mg/dl (0.60-1.20)
[2017-09-18] MEDS: MULTIVITAMIN TAB PO SCH (08:17)
[2017-09-18] MEDS: FLECAINIDE 150 MG PO SCH (08:17)
[2017-09-18] MEDS: METOPROLOL TARTRATE 100 MG TAB PO SCH (08:18)
[2017-09-18] MEDS: NSS + 20MEQ KCL 1000ML 1,000 ML IV SCH (08:19)
[2017-09-18] MEDS ORDERED: ATORVASTATIN 40 MG TAB PO SCH (09:00)
[2017-09-18] MEDS ORDERED: ASPIRIN 81 MG ECTAB PO SCH (09:00)
[2017-09-18] MEDS ORDERED: VALS40TA2 PO (09:01)
[2017-09-18] MEDS ORDERED: ASPEC81 PO (09:01)
[2017-09-18] MEDS ORDERED: LPT40 PO (09:07)
--- NOTE | 2017-09-18 09:11 | Discharge Instructions ---
Discharge Instructions Date of Service Sep 18, 2017. Admission Reason for Admission: Acute Coronary Syndrome Discharge Discharge Diagnosis / Problem: NSTEMI Discharge Goals Goal(s): Improve function, Improve disease control Activity Recommendations Activity Limitations: per Instructions/Follow-up section Exercise/Sports Limitations: until after follow-up appointment May Resume Sexual Activity: after follow-up appointment Shower/Bathe: no limitations Driving or Machine Use: no limitations . Instructions / Follow-Up Instructions / Follow-Up Medications: - ASPIRIN: 81mg daily - DIOVAN: 40mg daily, started for coronary disease - LIPITOR: 80mg daily, lowers cholesterol, stabilizes plaques in coronary arteries - NITRO: sublingual, take as needed for chest pain In summary, you were diagnosed with an NSTEMI (non-ST elevation myocardial infarction) this was diagnosed based on chest pain, EKG changes and mild elevation in troponin echocardiogram showed your EF was preserved at 55-60% left heart catheterization showed mild disease in some vessels but no severe stenosis, no acute thrombus cardiology recommends medical management with aspirin, Eliquis, Lipitor, Metoprolol and losartan close follow up with cardiology in 2 weeks FOLLOW UP - Dr. Sanchez or Dr. Cruz with [facility] in 2 weeks, call [phone] for appointment Current Hospital Diet Patient's current hospital diet: AHA Diet (Heart Healthy), Diabetes Type 2 Diet Discharge Diet Recommended Diet: AHA Diet (Heart Healthy) Procedures Procedures Performed: Left heart catheterization Pending Studies Studies pending at discharge: no Laboratory Results Hemoglobin A1c Test 09/17/17 04:54 Range/Units Estimated Average Glucose 126 mg/dl Hemoglobin A1c 6.0 H 4.5-5.6 % Lipid Panel Test 09/17/17 04:54 Range/Units Triglycerides Level 93 0-150 mg/dl Cholesterol Level 153 0-200 mg/dl HDL Cholesterol 47 mg/dl Cholesterol/HDL Ratio 3.3 LDL Cholesterol, Calculated 87 mg/dl Medical Emergencies . Who to Call and When: Medical Emergencies: If at any time you feel your situation is an emergency, please call 911 immediately. . Non-Emergent Contact Non-Emergency issues call your: Rocket Scientist Call Non-Emergent contact if: you have any medication questions if yo have chest pain or pressure that does not go away, go to ED . . "Provider Documentation" section prepared by Dakota Doyle. . VTE Core Measure Inpt VTE Proph given/why not?: Other Anticoagulation [place] Drug Monitoring Program Search Results: no issues identified
[2017-09-18] MEDS ORDERED: APIXABAN 2.5 MG TAB PO STA (09:49)
[2017-09-18 10:02] VITALS: BP 144/91; PULSE 64; TEMP 37; O2SAT 97
--- NOTE | 2017-09-19 09:47 | Discharge Summary ---
Discharge Summary Date of Service Sep 18, 2017. Discharge Summary Admission Date: Sep 17, 2017 at 04:42 Discharge Date: Sep 18, 2017 Discharge Disposition: Home Principal Diagnosis: NSTEMI Problems/Secondary Diagnoses: Dyslipidemia Hypertension Atrial fibrillation Immunizations: Have You Had Influenza Vaccine: Unknown History of Tetanus Vaccine?: Unknown History of Pneumococcal: Unknown History of Hepatitis B Vaccine: Unknown Procedures: Left heart catheterization Summary: 1. Mild to moderate non-obstructive coronary artery disease - 40-50% diffuse mid LAD disease 2. Normal intracardiac filling pressure Consultations: Cardiology Medication Reconciliation New Medications: Valsartan (Diovan) 40 Mg Tab 1 TAB PO DAILY for 30 Days, #30 TAB 5 Refills Aspirin (Aspirin EC Low Dose) 81 Mg Ectab 81 MG PO QAM, #30 TABS 3 Refills Atorvastatin (Lipitor) 40 Mg Tab 80 MG PO QAM, #60 TAB 3 Refills Continued Medications: Apixaban (Eliquis) 5 Mg Tab 5 MG PO BID, TAB Diltiazem Hcl Coated Beads (Diltiazem Cd) 180 Mg Cap 180 MG PO DAILY PRN for AFIB, CAP Flecainide Acetate (Flecainide Acetate) 150 Mg Tab 75 MG PO BID Metoprolol Tartrate (Lopressor) (Lopressor) 100 Mg Tab 100 MG PO BID, TAB Multivitamin (Multivitamin) Tab 1 TAB PO DAILY, TAB Discontinued Medications: [place]-3 Fatty Acids (Fish Oil) 1,000 Mg Cap 2000 MG PO DAILY Discharge Exam Patient feeling well on the day of discharge, no chest pain or pressure, no dyspnea. Eating well. [place] ready to go home. Planning on flying back to [place] in one day, told her that would be fine. She actually had an appointment scheduled with her customer service specialist on 09/20, requested his name, will request the discharge summary be sent to him. Review of Systems: Constitutional: No fever, No chills, No sweats, No weight loss, No weakness , No fatigue, No problem reported Eyes: No worsening of vision, No eye pain, No redness, No discharge, No diplopia, No problem reported ENT: No hearing loss, No unusual epistaxis, No nasal symptoms, No sore throat, No tinnitus, No dental problems, No trouble swallowing, No problem reported Respiratory: No cough, No sputum, No wheezing, No shortness of breath, No dyspnea on exertion, No dyspnea at rest, No hemoptysis, No problem reported Cardiovascular: No chest pain, No orthopnea, No PND, No edema, No claudication, No palpitations, No problem reported Abdomen: No pain, No nausea, No vomiting, No diarrhea, No constipation, No GI bleeding, No problem reported Musculoskeletal: No joint pain, No muscle pain, No swelling, No calf pain, No problem reported Genitourinary - Female: No dysuria, No urinary frequency, No urinary urgency , No urinary incontinence, No urinary retention, No hematuria Neurologic: No memory loss, No paralysis, No weakness, No numbness/tingling , No vertigo, No balance problems, No problem reported Psychiatric: No depression symptoms, No anhedonism, No anxiety, No insomnia , No substance abuse, No problem reported Endocrine: No fatigue, No excessive thirst, No excessive urination, No problem reported Hematologic / Lymphatic: No abnormal bleeding/bruising, No clotting problems , No swollen lymph nodes, No night sweats, No problem reported Integumentary: No rash, No itch, No new/changing skin lesions, No color change, No bleeding, No problem reported Physical Exam: General Appearance: WD/WN, no apparent distress Eyes: normal inspection, EOMI, sclerae normal ENT: normal ENT inspection, hearing grossly normal, pharynx normal Neck: supple, no adenopathy, no JVD, trachea midline Respiratory/Chest: chest non-tender, lungs clear, normal breath sounds, no respiratory distress, no accessory muscle use Cardiovascular: regular rate, rhythm, no edema, no gallop, no JVD, no murmur , normal peripheral pulses Abdomen / GI: normal bowel sounds, non tender, soft, no organomegaly Extremities: normal inspection, no calf tenderness, normal capillary refill , no pedal edema, normal range of motion, pelvis stable Neurologic/Psychiatric: 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 EKG showed ST depression and TW inversions in lateral and inferior leads. Initial troponin negative but second went to 0.3. Evaluated by cardiology and recommended [facility]. - NSTEMI: symptoms of chest pain, EKG changes and mild elevation in troponin to 0.3 with next troponin trending down left heart catheterization performed on 09/17/17 showed diffuse to moderate disease, 40-50% diffuse LAD disease medical management Aspirin 81mg daily, Eliquis 5mg BID Lipitor 80mg daily continue metoprolol recommend starting DOROTHY or ARB, has allergy to DOROTHY (cough), recommend she speak with customer service specialist regarding Diovan no chest pain or pressure for two days, vitals stable, will d/c to home - Atrial fibrillation: HR stable, continue metoprolol and Eliquis - Dyslipidemia: was taking Fish Oil, will replace with Lipitor 80mg due to her NSTEMI warned her of side effects of statins close follow up with her customer service specialist, Dr. Cordova, in [facility] this week Total Time Spent: Greater than 30 minutes This includes examination of the patient, discharge planning, medication reconciliation, and communication with other providers. Discharge Instructions Please refer to the electronic Patient Visit Report (Discharge Instructions) for additional information. Follow-Up Dr. Cordova in [facility] this week Additional Copies To Dr. Benson Cordova
== END 2017-09-18 12:48 | disposition home or self-care (01) | DRG 282 ==
LOC: EDBD 00:44 → C.EDB 00:45 → C.MED 04:42 → ENRESERV 05:10 → C.2T 17:48
PROVIDERS: ADMIT Hospitalist; ATTEND Internal Medicine
PROC: B2150ZZ Fluoroscopy of Left Heart using High Osmolar Contrast (ICD-10-PCS; principal; 2017-09-17 13:05)
PROC: B2100ZZ Fluoroscopy of Single Coronary Artery using High Osmolar Contrast (ICD-10-PCS; principal; 2017-09-17 13:05)
PROC: 4A023N7 Measurement of Cardiac Sampling and Pressure, Left Heart, Percutaneous Approach (ICD-10-PCS; principal; 2017-09-17 13:05)
DX: I21.4 Non-ST elevation (NSTEMI) myocardial infarction (principal); Z82.49 Family history of ischemic heart disease and other diseases of the circulatory system; I24.9 Acute ischemic heart disease, unspecified; I48.0 Paroxysmal atrial fibrillation; Z87.891 Personal history of nicotine dependence; Z79.01 Long term (current) use of anticoagulants; Z88.0 Allergy status to penicillin; Z88.2 Allergy status to sulfonamides; I10 Essential (primary) hypertension

== ENCOUNTER → 2018-03-15 | Outpatient (CLI) | payer BC ==
[~2018-03-15] MED LIST changes: -AMLO-110 PO; +APIX1TAB3 PO; +ASPI-320 PO; -ASPI81TA28 PO; -CALC600T9 PO; +DILT180C96 PO; +FLEC150T PO; -HYDR25TA4 PO; -LOSA1TAB38 PO; +LPT40 PO; +METO100T14 PO; -OMEG10002 PO; +VALS40TA2 PO
[2018-03-15 16:25] LABS: BASO % 0.2 %; BASO ABS # 0.02 K/uL (0-0.2); EOS % 0.5 %; EOS ABS # 0.04 K/uL (0-0.5); HEMATOCRIT 42.5 % (37-47); HEMOGLOBIN 13.9 g/dL (12.0-16.0); IG# 0.02 K/uL (0.00-0.02); LYMPH % 37.5 %; LYMPH ABS # 3.29 K/uL (1.2-3.4); MEAN CELL VOLUME 90.4 fL (80-100); MEAN CORPUSCULAR HEMOGLOBIN 29.6 pg (25-34); MEAN CORPUSCULAR HGB CONC 32.7 g/dl (32-36); MEAN PLATELET VOLUME 10.6 fL (7.4-10.4); MONO % 7.3 %; MONO ABS # 0.64 K/uL (0.11-0.59); NEUT % 54.3 %; NEUT ABS # 4.76 K/uL (1.4-6.5); PLATELET COUNT 293 K/uL (130-400); RED CELL DISTRIBUTION WIDTH CV 12.7 % (11.5-14.5); RED CELL DISTRIBUTION WIDTH SD 42.1 fL (36.4-46.3); WHITE BLOOD COUNT 8.77 K/uL (4.8-10.8)
[2018-03-15 16:45] LABS: BLOOD UREA NITROGEN 28 mg/dl (7-18); CALCIUM 8.8 mg/dl (8.5-10.1); CARBON DIOXIDE 28 mmol/L (21-32); GLUCOSE 110 mg/dl (70-99); POTASSIUM 4.3 mmol/L (3.5-5.1); SODIUM 144 mmol/L (136-145)
== END | disposition home or self-care (01) ==
LOC: C.LAB1850 14:48
PROVIDERS: ATTEND Internal Medicine Interventional Cardiology
DX: I25.10 Atherosclerotic heart disease of native coronary artery without angina pectoris (principal); I48.0 Paroxysmal atrial fibrillation; I10 Essential (primary) hypertension

== ENCOUNTER → 2018-03-18 | Day surgery (SDC) | payer BC ==
[~2018-03-18] VITALS: Ht 162.6 cm; Wt 85.0 kg
[~2018-03-18] MED LIST changes: +LIDOCAINE HCL 2% 2 ML VIAL (20MG/ML) ONE; +PROPOFOL IV EMULSION 10 MG/ML 20 ML VIAL ONE
[2018-03-18 06:50] VITALS: BP 114/88; PULSE 115; TEMP 36.6; O2SAT 100; Ht 162.6 cm; Wt 85.0 kg
--- NOTE | 2018-03-18 07:27 | History & Physical Bridge Note ---
H&P Re-Evaluation Bridge Note: I have examined the patient, reviewed the History & Physical and in the interval since the performance of the History & Physical I have noted the following changes of clinical significance: No changes noted
[2018-03-18 07:30] VITALS: BP 140/80; PULSE 130; O2SAT 100
[2018-03-18 07:35] VITALS: BP 132/55; PULSE 112; O2SAT 93
[2018-03-18 07:40] VITALS: BP 122/69; PULSE 76; O2SAT 100
--- NOTE | 2018-03-18 07:46 | Cardioversion ---
Electricial Cardioversion Rpt Date of Service: 03/18/2018 Electrical Cardioversion Rprt Procedure: Direct current cardioversion (elective) Indication: Atrial fibrillation with rapid ventricular response Consent: Informed written consent was obtained prior to the procedure. Sedation: Sedation was provided by Dr. Lomax of anesthesiology in the form of propofol. Procedural details: After a time-out procedure was performed, in a synchronized fashion, 200 joules was used to successfully convert atrial fibrillation to sinus rhythm. Within the first 30 seconds, sinus rhythm once again reverted to atrial fibrillation with rapid ventricular response. She remained sufficiently sedated. Once again in a synchronized fashion, 200 joules was administered and successfully converted atrial fibrillation to sinus rhythm. She remained hemodynamically stable throughout the procedure. There were no known complications. Plan: 1. Continue anticoagulation for stroke risk reduction without interruption. 2. Continue beta-roland for rate control. 3. She declines starting anti rhythmic therapy at this time and prefers to follow-up with electrophysiology when she returns to [place]. Continue to follow-up with Dr. Cruz locally.
--- NOTE | 2018-03-18 08:03 | Discharge Instructions ---
Discharge Instructions Date of Service Mar 18, 2018. Visit Reason for Visit: Electrical cardioversion for atrial fibrillation Discharge Discharge Diagnosis / Problem: 1. Atrial fibrillation successfully converted to sinus rhythm Discharge Goals Goal(s): Improve disease control Medications Restart Stopped Medication(s): Resume your medications without change. Continue eliquis without interruption. Activity Recommendations Activity Limitations: per Instructions/Follow-up section Anesthesia . Post Anesthesia Instructions: If you have had General Anesthesia or IV Sedation: * Do not drive today. * Resume driving when surgeon permits. * Do not make important decisions or sign legal documents today. * Call surgeon for: 1. Temperature elevations greater than 101 degrees F. 2. Uncontrollable pain. 3. Excessive bleeding. 4. Persistent nausea and vomiting. 5. Medication intolerance (nausea, vomiting or rash). * For nausea and vomiting use only clear liquids such as: tea, soda, bouillon until nausea subsides, then gradually increase diet as tolerated. * If you have any concerns or questions, call your surgeon's office. If physician is unavailable and it is an emergency, call 911 or go to the nearest emergency room. . Instructions / Follow-Up Instructions / Follow-Up Follow up: 1. Follow up with Dr. Cruz in approx 2 weeks. His office with contact you with time/date of appointment. ACTIVITY RECOMMENDATIONS: * May resume driving tomorrow. SPECIAL CARE: * May apply burn ointment for skin irritation. * Please contact physician for any lightheadedness, dizziness or palpitations. Diet Recommendations Recommended Home Diet: resume previous diet Procedures Procedures Performed: 1. Electrical cardioversion Pending Studies Studies pending at discharge: no Medical Emergencies . Who to Call and When: Medical Emergencies: If at any time you feel your situation is an emergency, please call 911 immediately. . Non-Emergent Contact Non-Emergency issues call your: [facility] . . "Provider Documentation" section prepared by Jamey Phan. .
[2018-03-18 08:30] VITALS: BP 129/75; PULSE 68; O2SAT 99
--- NOTE | 2018-03-18 10:30 | Anesthesiology Progress Note ---
Anesthesia Post Op Note Date & Time Mar 18, 2018 at 10:30 Vital Signs Pain Intensity: 0 Vital Signs Past 12 Hours Date Time Temp Pulse Resp B/P (MAP) Pulse Ox O2 Delivery O2 Flow Rate FiO2 03/18/18 08:30 68 16 129/75 (93) 99 Room Air 03/18/18 08:15 70 16 137/77 (97) 99 Room Air 03/18/18 08:05 67 16 117/66 (83) 99 Room Air 03/18/18 07:55 68 16 114/57 (76) 99 Room Air 03/18/18 07:45 66 16 118/66 (83) 99 Room Air 03/18/18 07:40 76 18 122/69 100 Nasal Cannula 4 03/18/18 07:35 112 18 132/55 93 Nasal Cannula 4 03/18/18 07:30 130 18 140/80 100 Nasal Cannula 4 03/18/18 06:50 36.6 115 18 114/88 (97) 100 Room Air Notes Mental Status: alert / awake / arousable, participated in evaluation Pt Amnestic to Procedure: Yes Nausea / Vomiting: adequately controlled Pain: adequately controlled Airway Patency, RR, SpO2: stable & adequate BP & HR: stable & adequate Hydration State: stable & adequate Anesthetic Complications: no major complications apparent
== END | disposition home or self-care (01) ==
LOC: C.CATH 06:24
PROVIDERS: ATTEND Internal Medicine Cardiovascular Disease
DX: I48.0 Paroxysmal atrial fibrillation (principal); I25.10 Atherosclerotic heart disease of native coronary artery without angina pectoris; I10 Essential (primary) hypertension; Z79.82 Long term (current) use of aspirin; Z79.899 Other long term (current) drug therapy; Z79.01 Long term (current) use of anticoagulants; I25.2 Old myocardial infarction; G47.33 Obstructive sleep apnea (adult) (pediatric); Z88.2 Allergy status to sulfonamides; Z88.0 Allergy status to penicillin; Z88.8 Allergy status to other drugs, medicaments and biological substances; Z87.891 Personal history of nicotine dependence